=== PATIENT | male | born 1990 | race Caucasian/White ===

== ENCOUNTER 2019-02-20 17:55 | Emergency (ER) | payer OTHER, SELFPAY ==
[2019-02-20 17:59] VITALS: BP 133/91; PULSE 96; RESP 16; TEMP 37.1; O2SAT 100
--- NOTE | 2019-02-20 18:31 | DI.CT.S_ITS ---
PROCEDURE: CT HEAD/BRAIN WO CON INDICATIONS: headache 1 month TECHNIQUE: Noncontrast 4.5 mm thick angled axial sections acquired from the foramen magnum to the vertex, with coronal and sagittal reformats. For radiation dose reduction, the following was used: automated exposure control, adjustment of mA and/or kV according to patient size. COMPARISON: None. FINDINGS: Image quality: Excellent. There is a very large mass present in the right frontal region, measuring approximately 7.6 cm in diameter. There is significant associated vasogenic edema. There is obliteration of the right lateral ventricle and midline shift measuring approximately 1.6 cm. The right uncus is tight. There is probably calcification, but possibly minimal linear hemorrhage associated with the mass. It is unclear whether this is an intra-axial mass (potentially glioblastoma) or a extra-axial mass such as meningioma. There is no trapping of the left lateral ventricle. IMPRESSION: Very large right frontal region mass, unclear as to whether it is intra-axial or extra-axial. There is obliteration of the ipsilateral lateral ventricle and marked midline shift and the uncus is tight. There is either a minimal amount of hemorrhage or some calcification within the mass. Comment: Brain MRI with and without contrast may be helpful to establish whether this is an intra-axial or extra-axial lesion. Comment: Findings were discussed with Dr. Noel on 02/20/19 at 1910 hours. Dictated by: Rashid Lopez M.D. on 02/20/2019 at 19:08 Approved by: Rashid Lopez M.D. on 02/20/2019 at 19:16
--- NOTE | 2019-02-20 18:35 | ED.HA ---
HPI - Headache General Chief Complaint: Headache Stated Complaint: Nausea & Dizzy, Headache Time Seen by Provider: 02/20/19 18:22 Source: patient Mode of arrival: ambulatory Limitations: no limitations History of Present Illness HPI Narrative: Patient is a 28-year-old male who presents with headache. He says he has been getting daily headaches for a month. 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 He was getting headaches there as well. He gets nauseous he is sensitive to light and noise. Also over last week he has had at least 2 episodes when he stands up he gets extremely dizzy and lightheaded and feels like he is going to pass out he does not pass out but his legs get weak. He has no numbness tingling off in his extremities. no vomiting. no chest pain shortness of breath or fever. He has been taking Excedrin without any help. visual changes for 6 months needing to hold things farther away. no blackening of vision. MD Complaint: headache Onset (ago): month(s) (1) Onset description: gradual Location: parietal Severity: moderate Relieving factors: nothing Exacerbating factors: none Related Data Allergies Allergy/AdvReac Type Severity Reaction Status Date / Time No Known Drug Allergies Allergy Verified 02/20/19 19:18 Review of Systems Review of Systems ROS Unobtainable: All systems reviewed & are unremarkable except as noted in HPI and below Constitutional Denies chills, Denies fever(s), Reports headache(s), Denies lethargy and Denies weakness Eyes Reports blurry vision, Denies diplopia, Denies dry eyes and Denies eye pain ENT Ears, Nose, Mouth, and Throat: Denies change in voice, Reports headache(s), Reports neck pain and Denies sore throat Cardiovascular Denies chest pain, Denies syncope, Denies irregular heart rhythm, Reports lightheadedness and Denies dyspnea Respiratory Denies cough, Denies dyspnea and Denies wheezing Gastrointestinal Gastrointestinal: Denies diarrhea, Reports nausea and Denies vomiting Genitourinary Denies hematuria, Denies flank pain, Denies urinary incontinence and Denies urinary urgency Musculoskeletal Reports neck pain and Denies numbness Neurologic Denies syncope, Reports headache(s), Denies lack of coordination, Denies numbness and Denies weakness Allergic/Immunologic Denies wheezing [facility] Medical History Patient denies significant medical history (Acute) Social History Smoking Status: Never smoker Social History Smoking Status: Never smoker Exam Initial Vital Signs Initial Vital Signs: Vital Signs Temperature 98.7 F 02/20/19 17:59 Pulse Rate 96 H 02/20/19 17:59 Respiratory Rate 16 02/20/19 17:59 Blood Pressure 133/91 H 02/20/19 17:59 Pulse Oximetry 100 02/20/19 17:59 GENERAL: Well-appearing, well-nourished and in no acute distress. HEENT: Head atraumatic,EOMI, pupils reactive, face symmetric, moist mucous membranes CARDIOVASCULAR: Regular rate and rhythm without murmurs, rubs or gallops. RESPIRATORY: Breath sounds equal bilaterally, no wheezes rales or rhonchi. ABDOMEN: Soft, nontender. Normoactive bowel sounds all 4 quadrants. No guarding or rebound. EXTREMITIES: Normal range of motion, no clubbing or edema. Neurovascularly intact NEUROLOGICAL: Alert and oriented x4.Normal gait and speech. Cranial nerves II through XII grossly intact. Good [id number]-[id number], good ftmr-[id number], strength equal bilaterally, no dysarthria or aphasia, sensation in tact to soft touch bilaterally, no visual changes, no facial droop SKIN: Warm, dry, no laceration, no petechiae, no rashes or lesions. Scores NIH Stroke Scale Level of Conciousness: Alert, keenly responsive Ask month/age: Answers both questions correctly. Open/close eyes, close hand: Performs both tasks correctly Best gaze horizontal: Normal Visual serna: No visual loss Facial palsy: Normal symetrical movement Left arm drift: No drift for full 10 sec Right arm drift: No drift for full 10 sec Left leg drift: No drift for full 10 sec Right leg drift: No drift for full 10 sec Limb ataxia: Absent Sensory on face/arms/legs: Normal, no sensory loss Best language: No aphasia, normal Dysarthria: Normal Extinction or inattention: No abnormality Total NIH Stroke scale score: 0 Course Orders Ordered: Discontinued Medications Dexamethasone (Decadron) 10 mg IV NOW ONE Stop: 02/20/19 19:10 Last Admin: 02/20/19 19:18 Dose: 10 mg Sodium Chloride (Normal Saline 0.9%) 1,000 mls @ 1,000 mls/hr IV BOLUS ONE Stop: 02/20/19 19:30 Last Infusion: 02/20/19 20:05 Dose: 0 mls/hr Admin: 02/20/19 18:55 Dose: 1,000 mls/hr Mannitol 12.5 gm/ (Miscellaneous) 50 mls @ 181.44 mls/hr IV NOW ONE Stop: 02/20/19 19:31 Mannitol 12.5 gm/ (Miscellaneous) 62.5 mls @ 226.8 mls/hr IV NOW ONE Stop: 02/20/19 19:46 Last Infusion: 02/20/19 20:48 Dose: 226.8 mls/hr Infusion: 02/20/19 19:56 Dose: 0 mls/hr Admin: 02/20/19 19:40 Dose: 0.5 gm/kg/hr, 226.8 mls/hr Ketorolac Tromethamine (Toradol) 30 mg IV NOW ONE Stop: 02/20/19 18:32 Last Admin: 02/20/19 18:55 Dose: 30 mg Consultations Consultation #1: I spoke with Dr. Lopez, Radiology in regards to patient's head CT. Significant midline shift of 1.2 cm. Possibilities include meningioma versus glioblastoma. Recommends MRI. Time: 19:10 Consultation #2: Dr. Jorge ER physician at [facility] accepts patient. Recommends no mannitol at this time but does agree with dexamethasone. Time: 20:00 Vital Signs - 8 hr 02/20/19 17:59 02/20/19 19:34 02/20/19 20:16 Temperature 98.7 F Pulse Rate 96 H 79 68 Respiratory Rate 16 17 18 Blood Pressure 133/91 H Blood Pressure [Left Arm] 133/83 137/80 Pulse Oximetry 100 99 99 MDM - Headache Lab Data Attestation: I reviewed the patient's lab results. Result diagrams: 02/20/19 18:48 02/20/19 18:48 Lab Results 02/20/19 02/20/19 Range/Units 18:48 18:48 WBC 9.5 (4.5-11.0) X10^3/uL RBC 5.17 (4.5-5.9) X10^6/uL Hgb 16.0 (13.5-17.5) g/dL Hct 46.1 (41-53) % MCV 89.1 (80-100) fL MCH 31.0 (26-34) PG MCHC 34.8 (30-36) % RDW 12.6 (11.6-14.8) % Plt Count 234 (150-400) X10^3/uL Neut % (Auto) 68.7 (50-75) % Lymph % (Auto) 18.2 L (25-40) % Mcpherson % (Auto) 8.1 (3-14) % Eos % (Auto) 4.5 H (2-4) % Baso % (Auto) 0.5 (0-2) % Neut # (Auto) 6600 (3366-8348) /uL Lymph # (Auto) 1700 (2324-6022) /uL Mcpherson # (Auto) 800 (0-900) /uL Eos # (Auto) 400 (0-450) /uL Baso # (Auto) 100 (0-100) /uL Sodium 140 (137-145) mmol/L Potassium 3.8 (3.4-5.1) mmol/L Chloride 102 (98-107) mmol/L Carbon Dioxide 28 (22-32) mmol/L BUN 10 (9-20) mg/dL Creatinine 0.90 (0.66-1.25) mg/dL Estimated GFR > 60.0 (>60) mL/min BUN/Creatinine Ratio 11.1 (6-22) Glucose 87 (70-100) mg/dL Calcium 9.1 (8.4-10.2) mg/dL Total Bilirubin 0.4 (0.2-1.3) mg/dL AST 16 L (17-59) IU/L ALT 35 (21-72) IU/L Alkaline Phosphatase 65 (38-126) U/L Total Protein 6.8 (6.3-8.2) g/dL Albumin 4.3 (3.5-5.0) g/dL Globulin 2.5 (1.7-4.1) g/dL Albumin/Globulin Ratio 1.7 (1.0-2.8) Imaging Data CT scan - head: Radiologist's impression: PROCEDURE: CT HEAD/BRAIN WO CON INDICATIONS: headache 1 month TECHNIQUE: Noncontrast 4.5 mm thick angled axial sections acquired from the foramen magnum to the vertex, with coronal and sagittal reformats. For radiation dose reduction, the following was used: automated exposure control, adjustment of mA and/or kV according to patient size. COMPARISON: None. FINDINGS: Image quality: Excellent. There is a very large mass present in the right frontal region, measuring approximately 7.6 cm in diameter. There is significant associated vasogenic edema. There is obliteration of the right lateral ventricle and midline shift measuring approximately 1.6 cm. The right uncus is tight. There is probably calcification, but possibly minimal linear hemorrhage associated with the mass. It is unclear whether this is an intra-axial mass (potentially glioblastoma) or a extra-axial mass such as meningioma. There is no trapping of the left lateral ventricle. IMPRESSION: Very large right frontal region mass, unclear as to whether it is intra-axial or extra-axial. There is obliteration of the ipsilateral lateral ventricle and marked midline shift and the uncus is tight. There is either a minimal amount of hemorrhage or some calcification within the mass. Comment: Brain MRI with and without contrast may be helpful to establish whether this is an intra-axial or extra-axial lesion. Comment: Findings were discussed with Dr. Noel on 02/20/19 at 1910 hours. Dictated by: Rashid Lopez M.D. on 02/20/2019 at 19:08 ECG Data Attestation: I personally reviewed and interpreted this ECG as follows: Prior ECG tracings: not available for review Interpretation: Normal sinus rhythm rate 78 P are interval 141 QRS 91 QTC [address] changes T-wave inversion noted in lead 3 MDM Narrative Medical decision making narrative: Patient has had headache ongoing for 1 month no history of headaches or migraines review CT. CT does reveal large mass possibly a glioblastoma, with a large amount of swelling and shift. Mannitol was empirically started but patient only got 10 mL, and then stopped due to neurologically intact. he did get 1 dose of dexamethasone. Patient and agreeable to be transferred to [facility]. Critical Care Time Critical Care Time: Yes Total Critical Care Time: 30 Attestation: The high probability of a clinically significant, sudden or life threatening deterioration of the neurological system(s) required my full and direct attention, intervention and personal management. The aggregate critical care time was 30 minutes. This time is in addition to time spent performing reported procedures but includes the following: [x] Data Review and interpretation [x] Patient assessment and monitoring of vital signs [x] Documentation [x] Medication orders and management Discharge Plan Departure Patient Disposition: [facility] Clinical Impression: Brain mass Discharge Date/Time: 02/20/19 20:50 Interventions: ED Discharge Assessment Last Done: 02/20/19 20:49
[2019-02-20 18:55] LABS: Add Manual Diff / Slide Review NO; Basophils Absolute Auto 100 /uL (0-100); Basophils Percent Auto 0.5 % (0-2); Eosinophils Absolute Auto 400 /uL (0-450); Eosinophils Percent Auto 4.5 % (2-4); Hematocrit 46.1 % (41-53); Lymphocytes Absolute Auto 1700 /uL (1100-4500); Lymphocytes Percent Auto 18.2 % (25-40); Mean Corpuscular HGB Conc 34.8 % (30-36); Mean Corpuscular Volume 89.1 fL (80-100); Monocytes Absolute Auto 800 /uL (0-900); Monocytes Percent Auto 8.1 % (3-14); Neutrophils Absolute Auto 6600 /uL (1500-7000); Neutrophils Percent Auto 68.7 % (50-75); Platelet Count 234 X10^3/uL (150-400); Red Blood Cell Count 5.17 X10^6/uL (4.5-5.9); Red Cell Distribution Width 12.6 % (11.6-14.8); White Blood Cell Count 9.5 X10^3/uL (4.5-11.0)
[2019-02-20] MEDS: SODIUM CHLORIDE 0.9% 1,000 ML 1000 ML IV (18:55)
[2019-02-20] MEDS: KETOROLAC 60 MG/2 ML VIAL 30 MG IV (18:55)
[2019-02-20 19:05] LABS: Alanine Aminotransferase 35 IU/L (21-72); Albumin 4.3 g/dL (3.5-5.0); Albumin Globulin Ratio 1.7 (1.0-2.8); Alkaline Phosphatase 65 U/L (38-126); Aspartate Aminotransferase 16 IU/L (17-59); BUN Creatinine Ratio 11.1 (6-22); Bilirubin Total 0.4 mg/dL (0.2-1.3); Blood Urea Nitrogen 10 mg/dL (9-20); Calcium 9.1 mg/dL (8.4-10.2); Carbon Dioxide 28 mmol/L (22-32); Chloride 102 mmol/L (98-107); Estimated Glomerular Filt Rate > 60.0 mL/min (>60); Globulin 2.5 g/dL (1.7-4.1); Glucose 87 mg/dL (70-100); HEMOLYSIS < 15 (0-50); Potassium 3.8 mmol/L (3.4-5.1); Sodium 140 mmol/L (137-145); Total Protein 6.8 g/dL (6.3-8.2)
[2019-02-20] MEDS: DEXAMETHASONE 10 MG/ML VIAL IV (19:18)
[2019-02-20 19:34] VITALS: BP 133/83; PULSE 79; RESP 17; O2SAT 99
[2019-02-20] MEDS: ISOOSMOTIC VEHICLE IV (19:40)
[2019-02-20] MEDS: MANNITOL IV (19:40)
[2019-02-20 20:16] VITALS: BP 137/80; PULSE 68; RESP 18; O2SAT 99
[2019-02-20 20:49] VITALS: BP 122/78; PULSE 68; RESP 18; O2SAT 100
== END 2019-02-20 20:50 | disposition short-term general hospital (02) ==
PROVIDERS: Emergency Provider Emergency Medicine
DX: G93.9 Disorder of brain, unspecified (principal); R51 Headache; R42 Dizziness and giddiness; R53.1 Weakness; H53.8 Other visual disturbances
CPT/HCPCS: 36591; 70450; 80053; 85025; 93005; 96361; 96365; 96375; 99283; 99285; J1100; J1885; J2150

== ENCOUNTER 2019-03-14 14:01 | Outpatient (RCR) | payer OTHER, SELFPAY ==
--- NOTE | 2019-03-15 10:34 | ST.OPIE ---
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 CT revealed very large right frontal region mass and patient was transferred to [facility]. He is s/p right frontal lobe resection and will begin chemotherapy at the end of the month. 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 Helder scored 25/30 which falls one point below norm of >26. He lost 3 points short delayed recall, one point for attention during forward digit span and one during serial 7 subtraction. - Receptive Language Yes/No Questions Skill Level WFL Following Directions - Verbal Skill Level WFL Following Directions - Written Skill Level WFL Defining Words Skill Level WFL Auditory Comprehension Skill Level WFL - Expressive Language Automatic Speech Skill Level WFL Sentence Closure Skill Level WFL Object Naming Skill Level WFL Oral Expression Skill Level WFL - Findings Language Findings The patient and his report they have not observed any changes in Helder's speech, language, cognition or personality since the surgery. Education was provided to the patient and his regarding potential need for services in the future following chemotherapy or when the patient returns to work and is faced with higher demands than daily household tasks. Recommendations Recommendations Helder's speech, language and cognition are at baseline per informal assessment and patient/caregiver report; therefore, speech, language and cognitive intervention is not needed at this time. It is recommended that Helder return for re-evaluation as needed in the future.
== END 2019-04-06 14:24 | disposition home or self-care (01) ==
LOC: SP 14:01
DX: D49.6 Neoplasm of unspecified behavior of brain (principal)
CPT/HCPCS: 92523

== ENCOUNTER 2019-03-22 09:45 | Outpatient (RCR) | payer OTHER, SELFPAY ==
--- NOTE | 2019-03-16 18:33 | PT.OIE ---
Current Diagnoses Neoplasm of unspecified behavior of brain (03/15/19) Past Medical History (Last Reviewed 02/20/19 @ 18:49 by Ani Noel DO) Patient denies significant medical history (Acute) Provider Visit Care Team Role Provider Type Sarah Valentine MD Attending Provider Non-Staff Primary Care Provider Specialty: Family Practice Address: [address] [place] [address], [id number] Email: Physical Therapy Initial Evaluation PT-OP-A Visit Information Start: 03/16/19 09:08 Freq: Status: Active Protocol: Document 03/15/19 09:00 (Rec: 03/16/19 09:28 [email or web address]) Out-Patient Physical Therapy Visit Information Visit Information Visit Type Initial Evaluation Visit Start Time 09:00 Visit Stop Time 09:45 Total Visit Minutes 45 Visit Number 11/14 Number of CRIMINAL RESEARCH SPECIALIST Visits 0 Evaluation Information Evaluation Date 03/15/19 Precautions Precautions Seizure precautions PT-OP-B Current Condition Start: 03/16/19 09:08 Freq: Status: Active Protocol: Document 03/15/19 09:00 (Rec: 03/16/19 09:28 [email or web address]) Current Condition History of Current Condition Onset Date 02/24/19 Current Complaints S/p R frontal craniotomy, decreased activity tolerance History of Current Condition Pt is a 28yo M s/p right frontal craniotomy for resection of R frontal glioma on 02/24 at [facility]. Per EMR, pt was able to complete ADLs with set up to mod I and functional mobility with SBA during hospitalization. Presented with decreased speed of movements, increased time for processing speed, and foot drag during mobility. However, pt has been progressing significantly after D/C and able to walk 15-30 mins for 4 times a day now without any c/ o weakness, limitation. He did state he is pretty close to his baseline but still not too sure whether he is able to return to work since it requires physical work. 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 Pt also likes to go to the gym before sx for 5-6 times a week with mostly endurance exercises such as treadmill, eliptical and biking. Prior Treatments and Tests PT, OT and ST at [facility] Treatment Goals Patient/Caregiver Goals 1. 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 Will be able to return to workout routine 5-6 times / weekl Prior Functional Status Baseline Function- ADL's Independent Baseline Function- Mobility Independent Baseline Function- Gait independent without AD Current Functional Impairments (Reported) Functional Limitations- ADL's independent without AD Functional Limitations- Mobility/Gait independent without AD, 15-30 mins of walking 4 times day Functional Limitations- Work/School unable to lift PT-OP-C Subjective Start: 03/16/19 09:08 Freq: Status: Active Protocol: Document 03/15/19 09:00 (Rec: 03/16/19 09:28 [email or web address]) OP-PT Subjective Patient Comments Patient Comments I feel quite normal now. OP-PT Pain Assessment Pain Assessment Grid Paper Pain Assessment Grid Completed Yes Location Head Intensity 1 Scale Used Numeric (1 - 10) Description Dull Pressure Frequency Occasional PT-OP-D Balance Start: 03/16/19 09:08 Freq: Status: Active Protocol: Document 03/15/19 09:00 (Rec: 03/16/19 09:44 [email or web address]) OP-PT Balance Assessment Sitting Balance Static Sitting Balance Ability Normal Dynamic Sitting Balance Ability Normal Standing Balance Static Standing Balance Ability Normal Dynamic Standing Balance Ability Normal Balance Tests Single Limb Standing Single Limb- Right 1 min Single Limb- Left 1 min Tandem Tandem Standing 1 min Other Other Balance Tests Performed single leg standing with eyes closed 5 secs for both sides Hyde Fall Scale Copyright Permission Mary Ellen JM, Mary Ellen RM, Tio SJ. Development of a scale to identify the fall- prone patient. Can J Aging 1989;8;366-7. Cesar Hyde (2009). Preventing patient falls. (2nd ed). [facility]: [place]. PT-OP-E Functional Tests Start: 03/16/19 09:08 Freq: Status: Active Protocol: Document 03/15/19 09:00 (Rec: 03/16/19 09:44 [email or web address]) Functional Tests 6 Minute Walk Test Distance 1310 feet Device Used none PT-OP-G Mobility & Gait Start: 03/16/19 09:08 Freq: Status: Active Protocol: Document 03/15/19 09:00 (Rec: 03/16/19 09:44 [email or web address]) OP Gait Assessment Gait Gait Assistance Required: Independent Assistive Devices Assistive Device None Gait Deviations General Gait Pattern Within Normal Limits Comments Gait Comments no deviation noted PT-OP-H Neuro Start: 03/16/19 09:08 Freq: Status: Active Protocol: Document 03/15/19 09:00 (Rec: 03/16/19 09:44 [email or web address]) Sensation Evaluation Gross Sensation Gross Sensation WNL Coordination Evaluation Upper Extremity Tests Right Finger to Nose Test Normal Performance Finger to Therapist's Finger Test Normal Performance Pronation/Supination Test Normal Performance Left Finger to Nose Test Normal Performance Finger to Therapist's Finger Test Normal Performance Pronation/Supination Test Normal Performance Lower Extremity Tests Right Alternate Heel to Knee; Heel to Toe Test Normal Performance Heel on Ledezma Test Normal Performance Foot Tapping Test Normal Performance Left Alternate Heel to Knee; Heel to Toe Test Normal Performance Heel on Ledezma Test Normal Performance Foot Tapping Test Normal Performance Deep Tendon Reflex & Clonus Assessment Deep Tendon Reflex Bilateral Bicep Deep Tendon Reflex 2+ Normal Bilateral Tricep Deep Tendon Reflex 2+ Normal Bilateral Brachioradialis Deep Tendon Reflex 2+ Normal Bilateral Achilles Deep Tendon Reflex 2+ Normal Bilateral Patellar Deep Tendon Reflex 2+ Normal PT-OP-M Strength Start: 03/16/19 09:08 Freq: Status: Active Protocol: Document 03/15/19 09:00 (Rec: 03/16/19 09:44 [email or web address]) Hip Strength Hip Manual Muscle Testing Right Flexion (L2) 5 Normal Extension (S1) 5 Normal Abduction 5 Normal Adduction 5 Normal External Rotation 5 Normal Internal Rotation 5 Normal Left Flexion (L2) 5 Normal Extension (S1) 5 Normal Abduction 5 Normal Adduction 5 Normal External Rotation 5 Normal Internal Rotation 5 Normal Knee Strength Knee Manual Muscle Testing Right Flexion (S2) 5 Normal Extension (L3) 5 Normal Left Flexion (S2) 5 Normal Extension (L3) 5 Normal PT-OP-T Assessment and Plan Start: 03/16/19 09:08 Freq: Status: Active Protocol: Document 03/15/19 09:00 (Rec: 03/16/19 09:44 [email or web address]) Physical Therapy Assessment Rehab Potential Rehabilitation Potential Excellent Evaluation Complexity Number of Personal Factors/Comorbidities 1-2 Number of Body Systems Impaired 1-2 Clinical Presentation at Evaluation Stable Impairments Impairments Activity Tolerance Functional Activities Other Concerns Barriers to Rehabilitation Pt is on seizure precautions Goals workout Impairment decreased activity tolerance Circus Performer Goal (LTG) Pt will be able to return to his workout routine 5/6 times a week at the gym which involves running on treadmill, eliptical and biking to improve his overall activity endurance LTG Duration 12 weeks lifting Impairment Pt is unable to lift heavy objects Circus Performer Goal (LTG) Pt will be able to lift objects up to 50 lbs from the floor as an 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 Pt presents to clinic today with his and he demonstrates close to baseline of functional mobility level. He is now independent for ADLs/ IADLs, amb without AD / deviation. He also did not show any strength, motor control, ROM deficits throughout assessment. But there is noticeable decrease in balance with eyes closed during single leg stance (<5 s ). 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 He reports he has to lift objects up to 50lbs sometimes. He also states he has lifting restriction up to 10lbs after sx but does not recall the duration. Recommended him to reach out to referring MD to find out further details. Phone call has made this AM but unable to reach to MD office. Will cont follow up with MD and pt. In the mean time, pt will benefit from skilled therapy to assist pt to return to his previous functional mobility/ strength for his work duties through graded exposure, overall endurance and strength training. Physical Therapy Plan Frequency and Duration Frequency of Treatment 1x/Week Duration of Treatment 12 weeks Plan of Care Start Date 03/15/19 Plan of Care End Date 06/15/19 Therapeutic Interventions Therapeutic Interventions Aquatic Therapy Balance Training Gait Training Home Exercise Program Patient/Caregiver Education Self-Care/Home Management Therapeutic Activities Therapeutic Exercises Next Visit Focus/Plan Next Note Type Treatment Note Next Visit Plan cont to follow up with MD and pt regarding post op lifting restrictions graded exposure for work related training overall strengthening and cardion training
--- NOTE | 2019-03-17 10:46 | PT.OTN ---
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 Per EMR, pt was able to complete ADLs with set up to mod I and functional mobility with SBA during hospitalization. Presented with decreased speed of movements, increased time for processing speed, and foot drag during mobility. However, pt has been progressing significantly after D/C and able to walk 15-30 mins for 4 times a day now without any c/ o weakness, limitation. He did state he is pretty close to his baseline but still not too sure whether he is able to return to work since it requires physical work. 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 Pt also likes to go to the gym before sx for 5-6 times a week with mostly endurance exercises such as treadmill, eliptical and biking. Prior Treatments and Tests PT, OT and ST at [facility] Treatment Goals Patient/Caregiver Goals 1. 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 Will be able to return to workout routine 5-6 times / weekl Prior Functional Status Baseline Function- ADL's Independent Baseline Function- Mobility Independent Baseline Function- Gait independent without AD Current Functional Impairments (Reported) Functional Limitations- ADL's independent without AD Functional Limitations- Mobility/Gait independent without AD, 15-30 mins of walking 4 times day Functional Limitations- Work/School unable to lift PT-OP-C Subjective Start: 03/16/19 09:08 Freq: Status: Active Protocol: Document 03/17/19 10:29 EA (Rec: 03/17/19 10:46 EA [id number]) OP-PT Subjective Patient Comments Patient Comments Pt reports need to finish before 11 as they going for doctor's appointment at [facility]. PT-OP-D Balance Start: 03/16/19 09:08 Freq: Status: Active Protocol: Document 03/15/19 09:00 HH (Rec: 03/16/19 09:44 HH [email or web address]) OP-PT Balance Assessment Sitting Balance Static Sitting Balance Ability Normal Dynamic Sitting Balance Ability Normal Standing Balance Static Standing Balance Ability Normal Dynamic Standing Balance Ability Normal Balance Tests Single Limb Standing Single Limb- Right 1 min Single Limb- Left 1 min Tandem Tandem Standing 1 min Other Other Balance Tests Performed single leg standing with eyes closed 5 secs for both sides Hyde Fall Scale Copyright Permission Mary Ellen MCLAUGHLIN, Mary Ellen RM, Tio SJ. Development of a scale to identify the fall- prone patient. Can J Aging 1989;8;366-7. Cesar Hyde (2009). Preventing patient falls. (2nd ed). [place]: [place]. PT-OP-E Functional Tests Start: 03/16/19 09:08 Freq: Status: Active Protocol: Document 03/15/19 09:00 HH (Rec: 03/16/19 09:44 HH [email or web address]) Functional Tests 6 Minute Walk Test Distance 1310 feet Device Used none PT-OP-G Mobility & Gait Start: 03/16/19 09:08 Freq: Status: Active Protocol: Document 03/15/19 09:00 HH (Rec: 03/16/19 09:44 HH [email or web address]) OP Gait Assessment Gait Gait Assistance Required: Independent Assistive Devices Assistive Device None Gait Deviations General Gait Pattern Within Normal Limits Comments Gait Comments no deviation noted PT-OP-H Neuro Start: 03/16/19 09:08 Freq: Status: Active Protocol: Document 03/15/19 09:00 HH (Rec: 03/16/19 09:44 HH [email or web address]) Sensation Evaluation Gross Sensation Gross Sensation WNL Coordination Evaluation Upper Extremity Tests Right Finger to Nose Test Normal Performance Finger to Therapist's Finger Test Normal Performance Pronation/Supination Test Normal Performance Left Finger to Nose Test Normal Performance Finger to Therapist's Finger Test Normal Performance Pronation/Supination Test Normal Performance Lower Extremity Tests Right Alternate Heel to Knee; Heel to Toe Test Normal Performance Heel on Ledezma Test Normal Performance Foot Tapping Test Normal Performance Left Alternate Heel to Knee; Heel to Toe Test Normal Performance Heel on Ledezma Test Normal Performance Foot Tapping Test Normal Performance Deep Tendon Reflex & Clonus Assessment Deep Tendon Reflex Bilateral Bicep Deep Tendon Reflex 2+ Normal Bilateral Tricep Deep Tendon Reflex 2+ Normal Bilateral Brachioradialis Deep Tendon Reflex 2+ Normal Bilateral Achilles Deep Tendon Reflex 2+ Normal Bilateral Patellar Deep Tendon Reflex 2+ Normal PT-OP-M Strength Start: 03/16/19 09:08 Freq: Status: Active Protocol: Document 03/15/19 09:00 HH (Rec: 03/16/19 09:44 HH [email or web address]) Hip Strength Hip Manual Muscle Testing Right Flexion (L2) 5 Normal Extension (S1) 5 Normal Abduction 5 Normal Adduction 5 Normal External Rotation 5 Normal Internal Rotation 5 Normal Left Flexion (L2) 5 Normal Extension (S1) 5 Normal Abduction 5 Normal Adduction 5 Normal External Rotation 5 Normal Internal Rotation 5 Normal Knee Strength Knee Manual Muscle Testing Right Flexion (S2) 5 Normal Extension (L3) 5 Normal Left Flexion (S2) 5 Normal Extension (L3) 5 Normal PT-OP-Q Treatments Start: 03/16/19 09:08 Freq: Status: Active Protocol: Document 03/17/19 10:29 EA (Rec: 03/17/19 10:46 EA [id number]) Cardio Equipment Recumbent Stepper (Sci-Fit) Duration (Minutes) 14 Resistance 1-2 Other Warm up and cool down: light intesity Gym Equipment Cable Column (Body Solid) Leg Extension Details 20# Reps/Time x15 reps Rows Resistance 20# Reps/Time X15 reps Lat Pull Down Resistance 20# Reps/Time x15 reps Therapeutic Exercises Standing Exercises 3 Standing Exercise Name Squat Resistance 3# Reps/Minutes x 10 reps Comments cues for correction 2 Standing Exercise Name DB shoulder press Resistance 3# Reps/Minutes x15 reps 1 Standing Exercise Name DB side and front raises Resistance 3 # Reps/Minutes x 15 reps Other Exercises 2 Other Exercise Name Floor to waist lift Resistance 10 lbs Reps/Minutes x 5 reps Comments cues for breathing technique 1 Other Exercise Name T-ball DB press Resistance 3# Reps/Minutes x 15 reps Self-Care/Home Management Treatment Education Other Education Discussed safe exercises progression in cardiovascular and resistance training. Discussed the importance of stress avoidance. Discussed Benefits of health eating with regards to his condition. PT-OP-T Assessment and Plan Start: 03/16/19 09:08 Freq: Status: Active Protocol: Document 03/17/19 10:29 EA (Rec: 03/17/19 10:46 EA [id number]) Physical Therapy Assessment Assessment Summary Assessment Pt tolerated treament well with no signs of passing out. No headache or discomfort complaint during therex. He requires cues to correct form during squatting. Physical Therapy Plan Next Visit Focus/Plan Next Note Type Treatment Note Next Visit Plan Cont with current plan. Flexibility next visit.
--- NOTE | 2019-03-22 16:20 | PT.OTN ---
Current Diagnoses Neoplasm of unspecified behavior of brain (03/22/19) Physical Therapy Treatment Note PT-OP-A Visit Information Start: 03/16/19 09:08 Freq: Status: Active Protocol: Document 03/22/19 16:14 EA (Rec: 03/22/19 16:20 EA [id number]) Out-Patient Physical Therapy Visit Information Visit Information Visit Type Initial Evaluation Visit Start Time 09:45 Visit Stop Time 10:30 Total Visit Minutes 40 Visit Number 3/13 Number of CARRY OUT CLERK AND SHELF STOCKER Visits 0 PT-OP-B Current Condition Start: 03/16/19 09:08 Freq: Status: Active Protocol: Document 03/15/19 09:00 HH (Rec: 03/16/19 09:28 HH [email or web address]) Current Condition History of Current Condition Onset Date 02/24/19 Current Complaints S/p R frontal craniotomy, decreased activity tolerance History of Current Condition Pt is a 28yo M s/p right frontal 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 Per EMR, pt was able to complete ADLs with set up to mod I and functional mobility with SBA during hospitalization. Presented with decreased speed of movements, increased time for processing speed, and foot drag during mobility. However, pt has been progressing significantly after D/C and able to walk 15-30 mins for 4 times a day now without any c/ o weakness, limitation. He did state he is pretty close to his baseline but still not too sure whether he is able to return to work since it requires physical work. 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 Pt also likes to go to the gym before sx for 5-6 times a week with mostly endurance exercises such as treadmill, eliptical and biking. Prior Treatments and Tests PT, OT and ST at [facility] Treatment Goals Patient/Caregiver Goals 1. 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 Will be able to return to workout routine 5-6 times / weekl Prior Functional Status Baseline Function- ADL's Independent Baseline Function- Mobility Independent Baseline Function- Gait independent without AD Current Functional Impairments (Reported) Functional Limitations- ADL's independent without AD Functional Limitations- Mobility/Gait independent without AD, 15-30 mins of walking 4 times day Functional Limitations- Work/School unable to lift PT-OP-C Subjective Start: 03/16/19 09:08 Freq: Status: Active Protocol: Document 03/22/19 16:14 EA (Rec: 03/22/19 16:20 EA [id number]) OP-PT Subjective Patient Comments Patient Comments Pt reports muscle soreness following day of PT session; states woke up this morning a bit nausea but denies headache . PT-OP-D Balance Start: 03/16/19 09:08 Freq: Status: Active Protocol: Document 03/15/19 09:00 HH (Rec: 03/16/19 09:44 HH [email or web address]) OP-PT Balance Assessment Sitting Balance Static Sitting Balance Ability Normal Dynamic Sitting Balance Ability Normal Standing Balance Static Standing Balance Ability Normal Dynamic Standing Balance Ability Normal Balance Tests Single Limb Standing Single Limb- Right 1 min Single Limb- Left 1 min Tandem Tandem Standing 1 min Other Other Balance Tests Performed single leg standing with eyes closed 5 secs for both sides Hyde Fall Scale Copyright Permission Mary Ellen MCLAUGHLIN, Mary Ellen RM, Tio SJ. Development of a scale to identify the fall- prone patient. Can J Aging 1989;8;366-7. Cesar Hyde (2009). Preventing patient falls. (2nd ed). [place]: [place]. PT-OP-E Functional Tests Start: 03/16/19 09:08 Freq: Status: Active Protocol: Document 03/15/19 09:00 HH (Rec: 03/16/19 09:44 HH [email or web address]) Functional Tests 6 Minute Walk Test Distance 1310 feet Device Used none PT-OP-G Mobility & Gait Start: 03/16/19 09:08 Freq: Status: Active Protocol: Document 03/15/19 09:00 HH (Rec: 03/16/19 09:44 HH [email or web address]) OP Gait Assessment Gait Gait Assistance Required: Independent Assistive Devices Assistive Device None Gait Deviations General Gait Pattern Within Normal Limits Comments Gait Comments no deviation noted PT-OP-H Neuro Start: 03/16/19 09:08 Freq: Status: Active Protocol: Document 03/15/19 09:00 HH (Rec: 03/16/19 09:44 HH [email or web address]) Sensation Evaluation Gross Sensation Gross Sensation WNL Coordination Evaluation Upper Extremity Tests Right Finger to Nose Test Normal Performance Finger to Therapist's Finger Test Normal Performance Pronation/Supination Test Normal Performance Left Finger to Nose Test Normal Performance Finger to Therapist's Finger Test Normal Performance Pronation/Supination Test Normal Performance Lower Extremity Tests Right Alternate Heel to Knee; Heel to Toe Test Normal Performance Heel on Ledezma Test Normal Performance Foot Tapping Test Normal Performance Left Alternate Heel to Knee; Heel to Toe Test Normal Performance Heel on Ledezma Test Normal Performance Foot Tapping Test Normal Performance Deep Tendon Reflex & Clonus Assessment Deep Tendon Reflex Bilateral Bicep Deep Tendon Reflex 2+ Normal Bilateral Tricep Deep Tendon Reflex 2+ Normal Bilateral Brachioradialis Deep Tendon Reflex 2+ Normal Bilateral Achilles Deep Tendon Reflex 2+ Normal Bilateral Patellar Deep Tendon Reflex 2+ Normal PT-OP-M Strength Start: 03/16/19 09:08 Freq: Status: Active Protocol: Document 03/15/19 09:00 HH (Rec: 03/16/19 09:44 HH [email or web address]) Hip Strength Hip Manual Muscle Testing Right Flexion (L2) 5 Normal Extension (S1) 5 Normal Abduction 5 Normal Adduction 5 Normal External Rotation 5 Normal Internal Rotation 5 Normal Left Flexion (L2) 5 Normal Extension (S1) 5 Normal Abduction 5 Normal Adduction 5 Normal External Rotation 5 Normal Internal Rotation 5 Normal Knee Strength Knee Manual Muscle Testing Right Flexion (S2) 5 Normal Extension (L3) 5 Normal Left Flexion (S2) 5 Normal Extension (L3) 5 Normal PT-OP-Q Treatments Start: 03/16/19 09:08 Freq: Status: Active Protocol: Document 03/22/19 16:14 EA (Rec: 03/22/19 16:20 EA [id number]) Cardio Equipment Recumbent Stepper (Sci-Fit) Duration (Minutes) 14 Resistance 1-2 Other Warm up and cool down: light intesity Gym Equipment Cable Column (Body Solid) Leg Extension Details 20# Reps/Time x15 reps Rows Resistance 20# Reps/Time X15 reps Lat Pull Down Resistance 20# Reps/Time x15 reps Therapeutic Exercises Standing Exercises 3 Standing Exercise Name Squat Resistance 3# Reps/Minutes x 10 reps Comments cues for correction 2 Standing Exercise Name DB shoulder press Resistance 3# Reps/Minutes x15 reps 1 Standing Exercise Name DB side and front raises Resistance 3 # Reps/Minutes x 15 reps Other Exercises 2 Other Exercise Name Floor to waist lift Resistance 10 lbs Reps/Minutes x 5 reps Comments cues for breathing technique 1 Other Exercise Name Squat row Resistance 20# Reps/Minutes x 10 reps PT-OP-T Assessment and Plan Start: 03/16/19 09:08 Freq: Status: Active Protocol: Document 03/22/19 16:14 EA (Rec: 03/22/19 16:20 EA [id number]) Physical Therapy Assessment Assessment Summary Assessment Slight shakiness during squat cable row; denies lightheadedness. Requires frequent rest due to fatigue. Vitals check with at least WFL 130/90 just after exercises. Physical Therapy Plan Next Visit Focus/Plan Next Note Type Treatment Note Next Visit Plan Cont with current plan. Flexibility next visit.
--- NOTE | 2019-06-17 14:19 | PT.OPDS ---
Current Diagnoses Neoplasm of unspecified behavior of brain (03/22/19) Provider Visit Care Team Role Provider Type Sarah Valentine MD Attending Provider Non-Staff Primary Care Provider Specialty: Family Practice Address: [address] [place] [address], [facility] Email: Visit Number Visit Number 01/12 Discharge Summary PT-OP-B Current Condition Start: 03/16/19 09:08 Freq: Status: Active Protocol: Document 03/15/19 09:00 (Rec: 03/16/19 09:28 [email or web address]) Current Condition History of Current Condition Onset Date 02/24/19 Current Complaints S/p R frontal craniotomy, decreased activity tolerance History of Current Condition Pt is a 28yo M s/p right frontal 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 Per EMR, pt was able to complete ADLs with set up to mod I and functional mobility with SBA during hospitalization. Presented with decreased speed of movements, increased time for processing speed, and foot drag during mobility. However, pt has been progressing significantly after D/C and able to walk 15-30 mins for 4 times a day now without any c/ o weakness, limitation. He did state he is pretty close to his baseline but still not too sure whether he is able to return to work since it requires physical work. 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 Pt also likes to go to the gym before sx for 5-6 times a week with mostly endurance exercises such as treadmill, eliptical and biking. Prior Treatments and Tests PT, OT and ST at [facility] Treatment Goals Patient/Caregiver Goals 1. 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 Will be able to return to workout routine 5-6 times / weekl Prior Functional Status Baseline Function- ADL's Independent Baseline Function- Mobility Independent Baseline Function- Gait independent without AD Current Functional Impairments (Reported) Functional Limitations- ADL's independent without AD Functional Limitations- Mobility/Gait independent without AD, 15-30 mins of walking 4 times day Functional Limitations- Work/School unable to lift PT-OP-C Subjective Start: 03/16/19 09:08 Freq: Status: Active Protocol: Document 03/22/19 16:14 EA (Rec: 03/22/19 16:20 EA [id number]) OP-PT Subjective Patient Comments Patient Comments Pt reports muscle soreness following day of PT session; states woke up this morning a bit nausea but denies headache . PT-OP-D Balance Start: 03/16/19 09:08 Freq: Status: Active Protocol: Document 03/15/19 09:00 HH (Rec: 03/16/19 09:44 [email or web address]) OP-PT Balance Assessment Sitting Balance Static Sitting Balance Ability Normal Dynamic Sitting Balance Ability Normal Standing Balance Static Standing Balance Ability Normal Dynamic Standing Balance Ability Normal Balance Tests Single Limb Standing Single Limb- Right 1 min Single Limb- Left 1 min Tandem Tandem Standing 1 min Other Other Balance Tests Performed single leg standing with eyes closed 5 secs for both sides Hyde Fall Scale Copyright Permission PT-OP-E Functional Tests Start: 03/16/19 09:08 Freq: Status: Active Protocol: Document 03/15/19 09:00 HH (Rec: 03/16/19 09:44 [email or web address]) Functional Tests 6 Minute Walk Test Distance 1310 feet Device Used none PT-OP-G Mobility & Gait Start: 03/16/19 09:08 Freq: Status: Active Protocol: Document 03/15/19 09:00 HH (Rec: 03/16/19 09:44 [email or web address]) OP Gait Assessment Gait Gait Assistance Required: Independent Assistive Devices Assistive Device None Gait Deviations General Gait Pattern Within Normal Limits Comments Gait Comments no deviation noted PT-OP-H Neuro Start: 03/16/19 09:08 Freq: Status: Active Protocol: Document 03/15/19 09:00 HH (Rec: 03/16/19 09:44 [email or web address]) Sensation Evaluation Gross Sensation Gross Sensation WNL Coordination Evaluation Upper Extremity Tests Right Finger to Nose Test Normal Performance Finger to Therapist's Finger Test Normal Performance Pronation/Supination Test Normal Performance Left Finger to Nose Test Normal Performance Finger to Therapist's Finger Test Normal Performance Pronation/Supination Test Normal Performance Lower Extremity Tests Right Alternate Heel to Knee; Heel to Toe Test Normal Performance Heel on Ledezma Test Normal Performance Foot Tapping Test Normal Performance Left Alternate Heel to Knee; Heel to Toe Test Normal Performance Heel on Ledezma Test Normal Performance Foot Tapping Test Normal Performance Deep Tendon Reflex & Clonus Assessment Deep Tendon Reflex Bilateral Bicep Deep Tendon Reflex 2+ Normal Bilateral Tricep Deep Tendon Reflex 2+ Normal Bilateral Brachioradialis Deep Tendon Reflex 2+ Normal Bilateral Achilles Deep Tendon Reflex 2+ Normal Bilateral Patellar Deep Tendon Reflex 2+ Normal PT-OP-M Strength Start: 03/16/19 09:08 Freq: Status: Active Protocol: Document 03/15/19 09:00 (Rec: 03/16/19 09:44 [email or web address]) Hip Strength Hip Manual Muscle Testing Right Flexion (L2) 5 Normal Extension (S1) 5 Normal Abduction 5 Normal Adduction 5 Normal External Rotation 5 Normal Internal Rotation 5 Normal Left Flexion (L2) 5 Normal Extension (S1) 5 Normal Abduction 5 Normal Adduction 5 Normal External Rotation 5 Normal Internal Rotation 5 Normal Knee Strength Knee Manual Muscle Testing Right Flexion (S2) 5 Normal Extension (L3) 5 Normal Left Flexion (S2) 5 Normal Extension (L3) 5 Normal PT-OP-T Assessment and Plan Start: 03/16/19 09:08 Freq: Status: Active Protocol: Document 06/17/19 14:18 (Rec: 06/17/19 14:19 [email or web address]) Physical Therapy Plan Discharge Physical Therapy Discharge Reasons No Longer Attending PT Discharge Comments pt no longer attending PT since March. unable to reach pt via phone. D/C from PT
== END 2019-06-21 16:19 | disposition home or self-care (01) ==
LOC: PHYS 09:45
DX: D49.6 Neoplasm of unspecified behavior of brain (principal)
CPT/HCPCS: 97110; 97162